=== PATIENT | male | born 1945 | race Caucasian/White ===

== ENCOUNTER → 2017-11-08 | Outpatient (CLI) | payer OTHER ==
[2016-06-02 11:55] VITALS: BMI 26.9
[~2017-11-08] MED LIST: ATOR20TA65 PO; DILT120C18 PO; FLU180SY9 IM; FURO40TA35 PO; LISI5TAB25 PO; METF-411 PO; METH-284 PO; METH5TAB87 PO; PNEU0.5D3 IM; POTA8TAB41 PO; RIV10 PO; RIVA20TA PO; TRAZ-156 PO; TRIA1CAP81 PO
[2017-11-08 10:33] LABS: PLATELET COUNT, AUTOMATED 196 K/uL (150-450)
== END ==
LOC: LAB 09:30
PROVIDERS: ATTEND Internal Medicine
DX: Z12.5 Encounter for screening for malignant neoplasm of prostate (principal); I48.91 Unspecified atrial fibrillation; I50.9 Heart failure, unspecified; E11.9 Type 2 diabetes mellitus without complications; E78.5 Hyperlipidemia, unspecified; E05.90 Thyrotoxicosis, unspecified without thyrotoxic crisis or storm
CPT/HCPCS: 36415; 82040; 82247; 82310; 82374; 82435; 82565; 82947; 83036; 84075; 84132; 84153; 84155; 84295; 84439; 84443; 84450; 84460; 84520; 85025

== ENCOUNTER → 2018-06-03 | Outpatient (CLI) | payer OTHER ==
[2016-06-02 11:55] VITALS: BMI 26.9
[~2018-06-03] MED LIST changes: +DILT120C12 PO; -DILT120C18 PO; +FLU180SY11 IM; -METF-411 PO; +METF-450 PO; -TRAZ-156 PO; +TRAZ50TA34 PO
[2018-06-03 13:38] LABS: PLATELET COUNT, AUTOMATED 177 K/uL (150-450)
[2018-06-03 14:29] LABS: LDL CHOLESTEROL 61 mg/dl
== END ==
LOC: LAB 13:02
PROVIDERS: ATTEND Internal Medicine
DX: I48.91 Unspecified atrial fibrillation (principal); E11.9 Type 2 diabetes mellitus without complications; E78.5 Hyperlipidemia, unspecified; E05.90 Thyrotoxicosis, unspecified without thyrotoxic crisis or storm
CPT/HCPCS: 36415; 81001; 82040; 82247; 82310; 82374; 82435; 82465; 82565; 82947; 83036; 83718; 84075; 84132; 84155; 84295; 84439; 84443; 84450; 84460; 84478; 84520; 85025

== ENCOUNTER → 2019-01-07 | Outpatient (CLI) | payer OTHER ==
[2016-06-02 11:55] VITALS: BMI 26.9
[~2019-01-07] MED LIST changes: +DILT120T13 PO; -TRAZ50TA34 PO; +TRAZ50TA52 PO
[2019-01-07 11:57] LABS: PLATELET COUNT, AUTOMATED 212 K/uL (150-450)
[2019-01-07 12:10] LABS: INR 2.03
[2019-01-07 12:13] LABS: LDL CHOLESTEROL 69 mg/dl
--- NOTE | 2019-01-07 12:48 | EKG ---
FACILITY: [facility] [place] PATIENT NAME: MARCIA RAMIREZ : [id number] MR: [id number] V: [id number] EXAM DATE: ORDERING PHYSICIAN: JOCELINE SANTO TECHNOLOGIST: DANIEL Test Reason : PRE-OP Blood Pressure : / mmHG Vent. Rate : 093 BPM Atrial Rate : 100 BPM P-R Int : 000 ms QRS Dur : 104 ms QT Int : 382 ms P-R-T Axes : 000 000 074 degrees QTc Int : 474 ms Atrial fibrillation with premature ventricular or aberrantly conducted complexes Low voltage QRS Inferior infarct , age undetermined Abnormal ECG When compared with ECG of 01-JUN-2016 11:50, Vent. rate has decreased BY 47 BPM Nonspecific T wave abnormality no longer evident in Lateral leads Confirmed by JOCELINE SANTO ([id number]) on 01/09/2019 9:13:22 AM Referred By: DR. GOLD Confirmed By:JOCELINE SANTO
== END ==
LOC: LAB 11:32
PROVIDERS: ATTEND Internal Medicine
DX: Z01.818 Encounter for other preprocedural examination (principal); R94.31 Abnormal electrocardiogram [ECG] [EKG]; I21.19 ST elevation (STEMI) myocardial infarction involving other coronary artery of inferior wall; E05.90 Thyrotoxicosis, unspecified without thyrotoxic crisis or storm; E78.5 Hyperlipidemia, unspecified; E11.9 Type 2 diabetes mellitus without complications; I48.91 Unspecified atrial fibrillation; Z12.5 Encounter for screening for malignant neoplasm of prostate
CPT/HCPCS: 36415; 82040; 82247; 82310; 82374; 82435; 82465; 82565; 82947; 83036; 83718; 84075; 84132; 84153; 84155; 84295; 84443; 84450; 84460; 84478; 84520; 85025; 85610; 85730